=== PATIENT | female | born 1965 | race African-American/Black ===

== ENCOUNTER 2016-09-07 08:55 | Observation (INO) | payer OTHER ==
[2016-09-07] MEDS ORDERED: ASPIRIN 81 MG TABLET, CHEWABLE PO ONE (09:04)
--- NOTE | 2016-09-07 09:43 | EKG REPORT ---
SEVERITY:- ABNORMAL ECG - SINUS RHYTHM PROBABLE INFERIOR INFARCT, AGE INDETERMINATE ABNRM R PROG, CONSIDER ASMI OR LEAD PLACEMENT : Confirmed by: Hermes Ribeiro 07-Sep-2016 09:43:12
--- NOTE | 2016-09-07 10:13 | ER Document Report ---
[id number] TRAVEL OUTSIDE OF THE [place] IN LAST 30 DAYS: No - HPI Onset: Other Onset/Duration: Persistent Quality of pain: Other - heavieness Pain Level: 1 Associated symptoms: Body/muscle aches, Earache, Headache Exacerbated by: Denies Relieved by: Denies Similar symptoms previously: No Recently seen / treated by doctor: No <SUMI HAYWOOD - Last Filed: 09/07/16 18:38> <ALEX MONTGOMERY - Last Filed: 09/11/16 09:02> - General Chief Complaint: Cold Symptoms Stated Complaint: RIGHT SIDE PAIN Notes: Patient presents to the emergency department with complaints of chest heaviness for the past week that comes/goes. She also complains of pain on her right side. She reports her right arm has been hurting for one week that comes and goes and sometimes she feels numbness in her right hand. She denies chest heaviness at this time. She also reports for the past 3 days her right ear has been hurting she's had a headache and she's felt achy. She denies fever nausea vomiting diarrhea. Denies diaphoresis or nausea when the heaviness comes. Patient denies history of cardiac disease but is prediabetic, has history of hypertension and is obese. Denies family history of cardiac disease. (SUMI HAYWOOD) - Related Data Allergies/Adverse Reactions: Sulfa (Sulfonamide Antibiotics) Adverse Reaction (Mild, Verified 09/07/16 08:58) Home Medications: Current Home Medications Ergocalciferol (Vitamin D2) [Vitamin D2] 1 cap PO WE 09/07/16 [History] Estradiol [Estrace] 1 mg PO DAILY 09/07/16 [History] Fexofenadine HCl [Candy] 180 mg PO DAILY 09/07/16 [History] Fluticasone Propionate [Flonase Nasal [place] 50 Mcg/[place] 16 gm] 2 spray NASL BID 09/07/16 [History] Iron Fum & Ag/C/B12/FA/Ca/Succ [Multigen Plus Caplet] 1 tab PO DAILY 09/07/16 [ History] Losartan Potassium [Cozaar 50 mg Tablet] 50 mg PO DAILY 09/07/16 [History] Omeprazole 20 mg PO DAILY 09/07/16 [History] Past Medical History - General Information source: Patient Last Menstrual Period: hys - Social History Smoking Status: Never Smoker Cigarette use (# per day): No Chew tobacco use (# tins/day): No Frequency of alcohol use: None Drug Abuse: None Occupation: teacher at [employer] Lives with: Family Family History: Reviewed & Not Pertinent Patient has suicidal ideation: No Patient has homicidal ideation: No - Past Medical History Cardiac Medical History: Reports: Hx Hypertension Denies: Hx Coronary Artery Disease, Hx Heart Attack Pulmonary Medical History: Denies: Hx Asthma, Hx Bronchitis, Hx COPD, Hx Pneumonia Neurological Medical History: Denies: Hx Cerebrovascular Accident, Hx Seizures Endocrine Medical History: Reports: Hx Diabetes Mellitus Type 2 - Pre diabetic Renal/ Medical History: Denies: Hx Peritoneal Dialysis Musculoskeltal Medical History: Denies Hx Arthritis Past Surgical History: Reports: Hx Cholecystectomy, Hx Hysterectomy - Immunizations Immunizations up to date: Yes Hx Diphtheria, Pertussis, Tetanus Vaccination: Yes <SUMI HAYWOOD - Last Filed: 09/07/16 18:38> Review of Systems <SUMI HAYWOOD - Last Filed: 09/07/16 18:38> <ALEX MONTGOMERY - Last Filed: 09/11/16 09:02> - Review of Systems Notes: Review HPI for review of systems., All other systems negative (SUMI HAYWOOD) Physical Exam <SUMI HAYWOOD - Last Filed: 09/07/16 18:38> <ALEX MONTGOMERY - Last Filed: 09/11/16 09:02> - Vital signs Vitals: Temp Pulse Resp BP Pulse Ox 97.9 F 88 16 152/84 H 98 09/07/16 09:00 09/07/16 09:00 09/07/16 09:00 09/07/16 09:00 09/07/16 09:00 (SUMI HAYWOOD) (ALEX MONTGOMERY) - Notes Notes: PHYSICAL EXAMINATION: GENERAL: Well-appearing and in no acute distress nontoxic looking HEAD: Atraumatic, normocephalic. EYES: Pupils equal round and reactive to light, extraocular movements intact, sclera anicteric, conjunctiva are normal. ENT: TM WNL bhuim. nares patent, oropharynx clear without exudates. Moist mucous membranes. NECK: Normal range of motion, supple without lymphadenopathy LUNGS: CTAB and equal. No wheezes rales or rhonchi. HEART: Regular rate and rhythm without murmurs ABDOMEN: Soft, no tenderness. No guarding, no rebound BACK: No c/o pain EXTREMITIES: Normal range of motion, no pitting edema. No cyanosis. NEUROLOGICAL: Cranial nerves grossly intact. Normal sensory/motor exams. no weakness PSYCH: Normal mood, normal affect. SKIN: Warm, Dry, normal turgor, no rashes or lesions noted (SUMI HAYWOOD) Course - Laboratory Result Diagrams: 09/07/16 10:25 09/07/16 10:25 - Diagnostic Test Radiology reviewed: Image reviewed, Reports reviewed - IMPRESSION: NO SIGNIFICANT RADIOGRAPHIC FINDING IN THE CHEST - EKG Interpretation by Mt EKG shows normal: Sinus rhythm <SUMI HAYWOOD - Last Filed: 09/07/16 18:38> - Laboratory Result Diagrams: 09/07/16 10:25 09/07/16 10:25 <ALEX MONTGOMERY - Last Filed: 09/11/16 09:02> - Re-evaluation Re-evalutation: 09/07/16 10:13 Patient instructed on plan of care & timeframe 09/07/16 16:42 I have consulted the attending provider dr montgomery per [facility] guidelines. She agree' s with consult hospitalist for admission. Pt denies chest heaviness at this time , reports it comes/goes. 09/07/16 16:54 Patient instructed on all results agrees for admission for observation. Dr. Aguila contacted and agrees to tele obs. (SUMI HAYWOOD) - Vital Signs Vital signs: Temp Pulse Resp BP Pulse Ox 98.2 F 93 18 149/80 H 98 09/08/16 15:59 09/08/16 15:59 09/08/16 15:59 09/08/16 15:59 09/08/16 15:59 (SUMI HAYWOOD) (ALEX MONTGOMERY) - Laboratory Laboratory results interpreted by al: 09/07/16 10:15 Ur Leukocyte Esterase MODERATE H (ALEX MONTGOMERY) Discharge - Discharge Admitting Provider: Jennifer aguila Unit Admitted: Telemetry <SUMI HAYWOOD - Last Filed: 09/07/16 18:38> <ALEX MONTGOMERY - Last Filed: 09/11/16 09:02> - Discharge Clinical Impression: Chest heaviness Disposition: ADMITTED OBSERVATION
[2016-09-07 10:48] LABS: APPEARANCE,URINE SLIGHTLY-CLOUDY; BILIRUBIN,URINE NEGATIVE (NEGATIVE); GLUCOSE, URINE NEGATIVE (NEGATIVE); KETONES,URINE NEGATIVE (NEGATIVE); LEUKOCYTE ESTERASE,URINE MODERATE (NEGATIVE); NITRITE,URINE NEGATIVE (NEGATIVE); PROTEIN,URINE NEGATIVE (NEGATIVE); URINE SPECIFIC GRAVITY 1.021; UROBILINOGEN,URINE NEGATIVE mg/dL (<2.0)
[2016-09-07 11:00] LABS: ABSOLUTE BASOPHILS # (AUTO) 0.1 10^3/uL (0.0-0.2); ABSOLUTE EOSINOPHILS # (AUTO) 0.1 10^3/uL (0.0-0.6); ABSOLUTE LYMPHOCYTES (AUTO) 2.7 10^3/uL (0.5-4.7); ABSOLUTE MONOCYTES (AUTO) 0.5 10^3/uL (0.1-1.4); ABSOLUTE NEUT (AUTO) 5.1 10^3/uL (1.7-8.2); BASOPHILS % (AUTO) 0.7 % (0-2); EOSINOPHILS % (AUTO) 0.8 % (0-6); HEMATOCRIT 40.8 % (36.0-47.0); HEMOGLOBIN 13.2 g/dL (12.0-15.5); HGB HCT DIFFERENCE -1.2; LYMPHOCYTES % (AUTO) 32.4 % (13-45); MEAN CORPUSCULAR HEMOGLOBIN 27.2 pg (27.0-33.4); MEAN CORPUSCULAR HGB CONC 32.4 g/dL (32.0-36.0); MEAN CORPUSCULAR VOLUME 84 fl (80-97); MONOCYTES % (AUTO) 5.5 % (3-13); RED BLOOD COUNT 4.87 10^6/uL (3.72-5.28); RED CELL DISTRIBUTION WIDTH 13.9 % (11.5-14.0); SEGMENTED NEUTROPHILS % (AUTO) 60.6 % (42-78); WHITE BLOOD COUNT 8.4 10^3/uL (4.0-10.5)
[2016-09-07 11:16] LABS: ALANINE AMINOTRANSFERASE 22 U/L (9-52); ALBUMIN 4.2 g/dL (3.5-5.0); ALKALINE PHOSPHATASE 85 U/L (38-126); ANION GAP 10 (5-19); ASPARTATE AMINO TRANSFERASE 17 U/L (14-36); BILIRUBIN,TOTAL 0.5 mg/dL (0.2-1.3); BLOOD UREA NITROGEN 14 mg/dL (7-20); CALCIUM 9.2 mg/dL (8.4-10.2); CARBON DIOXIDE 29 mmol/L (22-30); CHLORIDE 104 mmol/L (98-107); CREATINE KINASE 118 U/L (30-135); CREATININE RESULT 0.69 mg/dL (0.52-1.25); GLUCOSE 88 mg/dL (75-110); LIPASE 109.2 U/L (23-300); SODIUM 142.8 mmol/L (137-145); TOTAL PROTEIN 7.1 g/dL (6.3-8.2)
[2016-09-07 11:38] LABS: CREATINE KINASE MB 0.45 ng/mL (<4.55)
[2016-09-07 11:39] LABS: TROPONIN I < 0.012 ng/mL
[2016-09-07] MEDS ORDERED: REGADENOSON INJ 0.4 MG/5 ML DISP.SYRIN IV ONE (14:27)
[2016-09-07] MEDS ORDERED: NORMAL SALINE 1000 ML 1,000 ML IV PRN (17:49)
[2016-09-07] MEDS ORDERED: ONDANSETRON HCL INJ/PF 4 MG/2 ML SDV IV PRN (17:49)
[2016-09-07] MEDS ORDERED: ACETAMINOPHEN 325 MG TABLET PO PRN (17:49)
--- NOTE | 2016-09-07 17:49 | PDOC H&P ---
History of Present Illness Admission Date/PCP: 09/07/16 17:35 EBONI DIOR MD Patient complains of: Chest pain History of Present Illness: DIAN SABA is a 51 year old female, with hypertension, questionable diabetes presents with chest pain of several generations on and off located in the precordium. It is pressure-like in character, with associated cold clammy sweats at times and nausea. No vomiting nor any shortness of breath. There is palpitation at times. No chills or fever nor cough nor pleurisy. Patient also experienced a different kind of pain that goes and radiates to the right upper extremity and it is sharp in nature intermittently. Patient likewise has intermittent leg pain and cramps and swelling. Past Medical History Cardiac Medical History: Reports: Hypertension Denies: Coronary Artery Disease, Myocardial Infarction Pulmonary Medical History: Reports: Other - Seasonal allergies Denies: Asthma, Bronchitis, Chronic Obstructive Pulmonary Disease (COPD), Pneumonia Neurological Medical History: Denies: Seizures Endocrine Medical History: Reports: Diabetes Mellitus Type 2 - Pre diabetic Musculoskeltal Medical History: Denies: Arthritis Hematology: Denies: Anemia Past Surgical History Past Surgical History: Reports: Cholecystectomy, Hysterectomy, Other - Bilateral oophorectomy. Social History Information Source: Patient Lives with: Family Smoking Status: Never Smoker Frequency of Alcohol Use: None Hx Recreational Drug Use: No Drugs: None Family History Family History: CVA, DM, Hypertension, Malignancy - Gastric Parental Family History Reviewed: Yes Children Family History Reviewed: Yes Sibling(s) Family History Reviewed.: Yes Medication/Allergy Allergies/Adverse Reactions: Sulfa (Sulfonamide Antibiotics) Adverse Reaction (Mild, Verified 09/07/16 08:58) Review of Systems Constitutional: ABSENT: chills, fever(s), headache(s), night sweats, weight gain , weight loss Eyes: ABSENT: visual disturbances Ears: ABSENT: hearing changes Nose, Mouth, and Throat: ABSENT: mouth pain, sore throat Cardiovascular: PRESENT: chest pain, palpitations. ABSENT: dyspnea on exertion , edema, orthropnea Respiratory: ABSENT: cough, dyspnea, hemoptysis Gastrointestinal: ABSENT: abdominal pain, bloating, coffee ground emesis, constipation, diarrhea, heartburn, hematemesis, hematochezia, melena, nausea, vomiting Genitourinary: PRESENT: other - Occasional frequency. ABSENT: dysuria, hematuria Musculoskeletal: ABSENT: joint swelling Integumentary: ABSENT: pruritus, rash, wounds Neurological: ABSENT: abnormal gait, abnormal speech, confusion, dizziness, focal weakness, syncope Psychiatric: ABSENT: anxiety, depression, homidical ideation, suicidal ideation Endocrine: ABSENT: cold intolerance, heat intolerance, polydipsia, polyuria Hematologic/Lymphatic: ABSENT: easy bleeding, easy bruising Physical Exam Vital Signs: Temp Pulse Resp BP Pulse Ox 97.9 F 88 16 152/84 H 98 09/07/16 09:00 09/07/16 09:00 09/07/16 09:00 09/07/16 09:00 09/07/16 09:00 General appearance: PRESENT: no acute distress, cooperative, other - Overweight Head exam: PRESENT: atraumatic, normocephalic Eye exam: PRESENT: conjunctiva pink, EOMI, PERRLA. ABSENT: scleral icterus Ear exam: PRESENT: normal external ear exam Mouth exam: PRESENT: moist, neck supple, tongue midline Neck exam: ABSENT: carotid bruit, JVD, lymphadenopathy, thyromegaly Respiratory exam: PRESENT: clear to auscultation bhumi. ABSENT: rales, rhonchi, wheezes Cardiovascular exam: PRESENT: RRR. ABSENT: diastolic murmur, rubs, systolic murmur Pulses: PRESENT: normal dorsalis pedis pul Vascular exam: PRESENT: normal capillary refill GI/Abdominal exam: PRESENT: normal bowel sounds, soft. ABSENT: distended, guarding, mass, organolmegaly, rebound, tenderness Rectal exam: PRESENT: deferred Extremities exam: PRESENT: full ROM. ABSENT: calf tenderness, clubbing, pedal edema Neurological exam: PRESENT: alert, awake, oriented to person, oriented to place , oriented to time, oriented to situation Psychiatric exam: PRESENT: appropriate affect, normal mood. ABSENT: homicidal ideation, suicidal ideation Skin exam: PRESENT: dry, intact, warm. ABSENT: cyanosis, rash Results Impressions: Chest X-Ray 09/07/16 10:09 IMPRESSION: NO SIGNIFICANT RADIOGRAPHIC FINDING IN THE CHEST. Assessment & Plan - Diagnosis (1) Chest heaviness Is this a current diagnosis for this admission?: Yes (2) UTI (urinary tract infection) Qualifiers: Urinary tract infection type: site unspecified Hematuria presence: without hematuria Qualified Code(s): N39.0 - Urinary tract infection, site not specified Is this a current diagnosis for this admission?: Yes (3) Essential hypertension Is this a current diagnosis for this admission?: Yes (4) Seasonal allergic rhinitis Qualifiers: Allergic rhinitis trigger: unspecified Qualified Code(s): J30.2 - Other seasonal allergic rhinitis Is this a current diagnosis for this admission?: Yes - Time Time Spent: 30 to 50 Minutes - Plan Summary Plan Summary: Admitted to observation. Serial cardiac enzymes 3. If negative patient wanting to have a stress test done. We will leave ceftriaxone for urinary tract infection and send urine sample for culture. Patient will be started on aspirin. We will check d-dimer as well. Supplemental oxygen will be given. DVT prophylaxis with Lovenox will be placed. Further testing depends on the initial evaluation as outlined above.
[2016-09-07] MEDS ORDERED: CEFTRIAXONE 1 GM/D5W RTU 1 GM/50 ML RTUPB IV SCH (18:00)
[2016-09-07] MEDS: DOCUSATE SODIUM 100 MG CAPSULE PO SCH (18:33)
[2016-09-07] MEDS ORDERED: ENOXAPARIN SODIUM INJ 40 MG/0.4 ML DISP.SYRIN SUBCUT ONE (20:00)
--- NOTE | 2016-09-07 21:36 | EKG REPORT ---
SEVERITY:- NORMAL ECG - SINUS RHYTHM : Confirmed by: Hermes Ribeiro 07-Sep-2016 21:35:46
[2016-09-08] MEDS ORDERED: LANSOPRAZOLE 30 MG TAB.RAP.DR PO SCH (06:00)
[2016-09-08] MEDS ORDERED: ENOXAPARIN SODIUM INJ 40 MG/0.4 ML DISP.SYRIN SUBCUT SCH (08:00)
[2016-09-08] MEDS ORDERED: (PENDING PHARMACY ID) (Estradiol [Estrace] 1 MG) PO SCH (10:00)
[2016-09-08] MEDS ORDERED: [UNRECOGNIZED DRUG - OTHER] PO SCH (10:00)
[2016-09-08] MEDS ORDERED: LORATADINE 10 MG TABLET PO SCH (10:00)
[2016-09-08] MEDS ORDERED: ASPIRIN 81 MG TABLET, CHEWABLE PO SCH (10:00)
[2016-09-08] MEDS ORDERED: MULTIVITAMIN TABLET PO SCH (10:00)
[2016-09-08] MEDS ORDERED: LOSARTAN POTASSIUM 50 MG TABLET PO SCH (10:00)
[2016-09-08] MEDS ORDERED: FLUTICASONE NASAL SPRAY 50 MCG/SPRY 120 SPRAY/16 GM NASL SCH (10:00)
[2016-09-08] MEDS: DOCUSATE SODIUM 100 MG CAPSULE PO SCH (11:29)
[2016-09-08 13:09] VITALS: BP 149/80
--- NOTE | 2016-09-08 15:57 | PDOC DISCHARGE SUMMARY ---
General - Admit/Disc Date/PCP Admission Date/Primary Care Provider: 09/07/16 17:49 EBONI DIOR MD Discharge Date: 09/08/16 - Discharge Diagnosis (1) Essential hypertension Is this a current diagnosis for this admission?: Yes (2) Chest heaviness Is this a current diagnosis for this admission?: Yes (3) Seasonal allergic rhinitis Is this a current diagnosis for this admission?: Yes - Additional Information Resuscitation Status: Full Code Discharge Diet: As Tolerated, Cardiac Discharge Activity: Activity As Tolerated Home Medications: Ergocalciferol (Vitamin D2) [Vitamin D2] 1 cap PO WE 09/07/16 Estradiol [Estrace] 1 mg PO DAILY 09/07/16 Fexofenadine HCl [Candy] 180 mg PO DAILY 09/07/16 Fluticasone Propionate [Flonase Nasal [place] 50 Mcg/[place] 16 gm] 2 spray NASL BID 09/07/16 Iron Fum & Ag/C/B12/FA/Ca/Succ [Multigen Plus Caplet] 1 tab PO DAILY 09/07/16 Losartan Potassium [Cozaar 50 mg Tablet] 50 mg PO DAILY 09/07/16 Omeprazole 20 mg PO DAILY 09/07/16 Aspirin [Aspirin 81 mg Chewable Tablet] 81 mg PO DAILY #30 tab.chew 09/08/16 History of Present Illness Patient complains of: Chest pain History of Present Illness: DIAN SABA is a 51 year old female, with hypertension, questionable diabetes presents with chest pain of several generations on and off located in the precordium. It is pressure-like in character, with associated cold clammy sweats at times and nausea. No vomiting nor any shortness of breath. There is palpitation at times. No chills or fever nor cough nor pleurisy. Patient also experienced a different kind of pain that goes and radiates to the right upper extremity and it is sharp in nature intermittently. Patient likewise has intermittent leg pain and cramps and swelling. Hospital Course Hospital Course: The patient was observed in a continues telemetry unit, serial cardiac enzymes were obtained which were nonsuggestive. The patient's EKG revealed no acute changes and the patient had no events on ekg monitor. Patient had no further replication of symptoms. She underwent Cardiolite stress test and findings were not suggestive of reversible ischemia. Patient was resumed on home medications. Patient is eager for discharge. Physical Exam Vital Signs: Temp Pulse Resp BP Pulse Ox 98.2 F 93 18 149/80 H 98 09/08/16 13:00 09/08/16 14:00 09/08/16 13:00 09/08/16 13:00 09/08/16 13:00 Intake & Output 09/06/16 09/07/16 09/08/16 23:59 23:59 23:59 Intake Total 200 0 Balance 200 0 Weight 121.8 kg 82.6 kg General appearance: PRESENT: no acute distress, well-developed, well-nourished Head exam: PRESENT: atraumatic, normocephalic Eye exam: PRESENT: conjunctiva pink, EOMI, PERRLA. ABSENT: scleral icterus Ear exam: PRESENT: normal external ear exam Mouth exam: PRESENT: moist, tongue midline Neck exam: ABSENT: carotid bruit, JVD, lymphadenopathy, thyromegaly Respiratory exam: PRESENT: clear to auscultation bhumi. ABSENT: rales, rhonchi, wheezes Cardiovascular exam: PRESENT: RRR. ABSENT: diastolic murmur, rubs, systolic murmur Pulses: PRESENT: normal dorsalis pedis pul Vascular exam: PRESENT: normal capillary refill GI/Abdominal exam: PRESENT: normal bowel sounds, soft. ABSENT: distended, guarding, mass, organolmegaly, rebound, tenderness Rectal exam: PRESENT: deferred Extremities exam: PRESENT: full ROM. ABSENT: calf tenderness, clubbing, pedal edema Neurological exam: PRESENT: alert, awake, oriented to person, oriented to place , oriented to time, oriented to situation, CN II-XII grossly intact. ABSENT: motor sensory deficit Psychiatric exam: PRESENT: appropriate affect, normal mood. ABSENT: homicidal ideation, suicidal ideation Skin exam: PRESENT: dry, intact, warm. ABSENT: cyanosis, rash Results Laboratory Results: Labs- Last Values WBC 8.4 10^3/uL (4.0-10.5) 09/07/16 10:25 RBC 4.87 10^6/uL (3.72-5.28) 09/07/16 10:25 Hgb 13.2 g/dL (12.0-15.5) 09/07/16 10:25 Hct 40.8 % (36.0-47.0) 09/07/16 10:25 MCV 84 fl (80-97) 09/07/16 10:25 MCH 27.2 pg (27.0-33.4) 09/07/16 10:25 MCHC 32.4 g/dL (32.0-36.0) 09/07/16 10:25 RDW 13.9 % (11.5-14.0) 09/07/16 10:25 Plt Count 228 10^3/uL (150-450) 09/07/16 10:25 Seg Neutrophils % 60.6 % (42-78) 09/07/16 10:25 Lymphocytes % 32.4 % (13-45) 09/07/16 10:25 Monocytes % 5.5 % (3-13) 09/07/16 10:25 Eosinophils % 0.8 % (0-6) 09/07/16 10:25 Basophils % 0.7 % (0-2) 09/07/16 10:25 Absolute Neutrophils 5.1 10^3/uL (1.7-8.2) 09/07/16 10:25 Absolute Lymphocytes 2.7 10^3/uL (0.5-4.7) 09/07/16 10:25 Absolute Monocytes 0.5 10^3/uL (0.1-1.4) 09/07/16 10:25 Absolute Eosinophils 0.1 10^3/uL (0.0-0.6) 09/07/16 10:25 Absolute Basophils 0.1 10^3/uL (0.0-0.2) 09/07/16 10:25 D-Dimer 0.41 ug/mL (0.00-0.50) 09/07/16 14:15 Sodium 142.8 mmol/L (137-145) 09/07/16 10:25 Potassium 4.0 mmol/L (3.6-5.0) 09/07/16 10:25 Chloride 104 mmol/L (98-107) 09/07/16 10:25 Carbon Dioxide 29 mmol/L (22-30) 09/07/16 10:25 Anion Gap 10 (5-19) 09/07/16 10:25 BUN 14 mg/dL (7-20) 09/07/16 10:25 Creatinine 0.69 mg/dL (0.52-1.25) 09/07/16 10:25 Est GFR ( Amer) > 60 (>60) 09/07/16 10:25 Est GFR (Non-Af Amer) > 60 (>60) 09/07/16 10:25 Glucose 88 mg/dL (75-110) 09/07/16 10:25 Calcium 9.2 mg/dL (8.4-10.2) 09/07/16 10:25 Total Bilirubin 0.5 mg/dL (0.2-1.3) 09/07/16 10:25 Direct Bilirubin 0.0 mg/dL (0.0-0.3) 09/07/16 10:25 AST 17 U/L (14-36) 09/07/16 10:25 ALT 22 U/L (9-52) 09/07/16 10:25 Alkaline Phosphatase 85 U/L (38-126) 09/07/16 10:25 Creatine Kinase 99 U/L (30-135) 09/08/16 01:28 CK-MB (CK-2) 0.45 ng/mL (<4.55) 09/07/16 10:25 Troponin I < 0.012 ng/mL 09/08/16 01:28 Total Protein 7.1 g/dL (6.3-8.2) 09/07/16 10:25 Albumin 4.2 g/dL (3.5-5.0) 09/07/16 10:25 Lipase 109.2 U/L (23-300) 09/07/16 10:25 Urine Color YELLOW 09/07/16 10:15 Urine Appearance SLIGHTLY-CLOUDY 09/07/16 10:15 Urine pH 6.0 (5.0-9.0) 09/07/16 10:15 Ur Specific [place] 1.021 09/07/16 10:15 Urine Protein NEGATIVE mg/dL (NEGATIVE) 09/07/16 10:15 Urine Glucose (UA) NEGATIVE mg/dL (NEGATIVE) 09/07/16 10:15 Urine Ketones NEGATIVE mg/dL (NEGATIVE) 09/07/16 10:15 Urine Blood NEGATIVE (NEGATIVE) 09/07/16 10:15 Urine Nitrite NEGATIVE (NEGATIVE) 09/07/16 10:15 Urine Bilirubin NEGATIVE (NEGATIVE) 09/07/16 10:15 Urine Urobilinogen NEGATIVE mg/dL (<2.0) 09/07/16 10:15 Ur Leukocyte Esterase MODERATE (NEGATIVE) H 09/07/16 10:15 Urine WBC (Auto) 50 /HPF 09/07/16 10:15 Urine RBC (Auto) 4 /HPF 09/07/16 10:15 Urine Bacteria (Auto) TRACE /HPF 09/07/16 10:15 Squamous Epi Cells Auto 4 /HPF 09/07/16 10:15 Urine Mucus (Auto) FEW /LPF 09/07/16 10:15 Urine Ascorbic Acid NEGATIVE (NEGATIVE) 09/07/16 10:15 Influenza A (Rapid) NEGATIVE (NEGATIVE) 09/07/16 10:35 Influenza B (Rapid) NEGATIVE (NEGATIVE) 09/07/16 10:35 09/08/16 06:30 Urine Culture - Pending Clean Catch Midstream Impressions: Chest X-Ray 09/07/16 10:09 IMPRESSION: NO SIGNIFICANT RADIOGRAPHIC FINDING IN THE CHEST. Qualifiers PATEINT BEING DISCHARGED WITH ANY OF THE FOLLOWING DIAGNOSIS?: No Plan Time Spent: Less than 30 Minutes
--- NOTE | 2016-09-10 19:05 | DRAGON STRESS TEST REPORT ---
Intravenous Lexiscan Cardiolite stress test using single photon emmision computerized tomography. Date of procedure: 09/08/2016 Ordering Provider: Dr. Tres Aguila Primary Care Physician: Dr. Aline Singh. Indication: Chest pain. Coronary risk factors: Age, non-insulin- dependent.insulin dependent diabetes mellitus type II without complications, and hypertension. Resting EKG: Sinus Rhythm. Poor R wave leads V1 to V4. There is T inversion in lead 3 Stress EKG: No changes of ischemia. The patient no chest pain or discomfort, and there were no arrhythmias seen. Reason for termination: Protocol. Conclusions: Normal EKG and hemodynamic response to IV Lexiscan. Nuclear data: At rest the patient was given 12.86 millicuries of technetium 99m sestamibi injected intravenously. As per protocol rest non gated SPECT images were obtained. Subsequently the patient was given intravenous Lexiscan at a dose of 0.4 mg in 5 mL intravenously, followed by flush with normal saline. Subsequently the stress dose of 33.7 millicuries of technetium 99m sestamibi was injected intravenously. As per protocol stress gated images were obtained. Nuclear interpretation: Review of images showed that there was significant breast attenuation artifact, and liver and bowel contamination artifact. Involving the anterior apical wall , and inferior arguelles. This is a poor quality study But in spite of this all segments of the myocardium had normal perfusion at rest, and normal perfusion post stress with IV Lexiscan. All segments of the myocardium had normal motion, contraction, and thickening by gated study. T. I D. ratio was normal at 1.15. Computer read rest, and stress left ventricular ejection fraction were 51 %, and 56 %, respectively. Visually both the stress and rest ejection fractions were normal, and greater than 55%. Conclusion: 1. There is no scintigraphic evidence of Lexiscan induced myocardial ischemia. 2. There is no scintigraphic evidence of myocardial infarction/scar. Recommendations: Aggressive risk factor modification, and treating the underlying co- morbidities. MTDD
== END 2016-09-08 16:30 | disposition home or self-care (01) ==
LOC: ER 08:55 → EH 17:35 → UNDOADMOB 17:35 → EH 17:49 → 4N 21:00
PROC: 3E033GC Introduction of Other Therapeutic Substance into Peripheral Vein, Percutaneous Approach (ICD-10-PCS; principal; 2016-09-07)
DX: R07.89 Other chest pain (principal); I10 Essential (primary) hypertension; J30.2 Other seasonal allergic rhinitis; R73.03 Prediabetes; N39.0 Urinary tract infection, site not specified
CPT/HCPCS: 93005; 99285; 96365; 36415 ×2; 87086; 82553; 82550 ×2; 83690; 85025; 80053; 81001; 84484 ×2; 85379; 87804; 93017; 71020; 78452; 93010; G0378 ×3; A9500; J2785; J1650 ×2; J3490; J0696; Q9969

== ENCOUNTER → 2017-03-20 | Outpatient (CLI) | payer BC, OTHER ==
--- NOTE | 2017-03-22 11:10 | WOMENS IMAGING REPORT ---
EXAM DESCRIPTION: BILAT SCREENING MAMMO W/CAD COMPLETED DATE/TIME: 03/21/2017 10:56 am REASON FOR STUDY: ROUTINE SCREENING; Z12.31 Z12.31 ENCNTR SCREEN MAMMOGRAM FOR MALIGNANT NEOPLASM O F LESLY COMPARISON: 2009 to 2015 TECHNIQUE: Standard craniocaudal and mediolateral oblique views of each breast recorded using PhysicianPortala l acquisition. LIMITATIONS: None. FINDINGS: No masses, calcifications or architectural distortion. No areas of suspicion. Read with the assistance of CAD. .[facility] R2 Cenova Version 1.3 .[facility] - R2 Cenova Version 1.3 .[facility] - R2 Cenova Version 2.4 .[facility] [place] - R2 Cenova Version 2.4 .[facility] - R2 [employer] Version 9.2 IMPRESSION: NORMAL MAMMOGRAM. BIRADS 1. BREAST DENSITY: b. There are scattered areas of fibroglandular density. BIRAD: 1 NEGATIVE RECOMMENDATION: ROUTINE SCREENING COMMENT: The patient has been notified of the results by letter per SA requirements. Additional no tification policies are in place for contacting patient with suspicious or incomplete findings. Quality ID #[id number]: The [employer] recommends an annual screening mammogram for women aged 40 years or over. This facility utilizes a reminder system to ensure that all patients receive reminder letters, and/or direct phone calls for appointments. This includes reminders for routine scr eening mammograms, diagnostic mammograms, or other Breast Imaging Interventions when appropriate. Th is patient will be placed in the appropriate reminder system. The [employer] ([employer]) has developed recommendations for screening MRI of the breast s in certain patient populations, to be used in conjunction with mammography. Breast MRI surveillanc e may be appropriate for women with more than 20% lifetime risk of developing breast cancer as deter mined by genetic testing, significant family history of the disease, or history of mantle radiation f or Hodgkins Disease. ACR Practice Guidelines 2008. TECHNICAL DOCUMENTATION: FINDING NUMBER: (1) ASSESSMENT: (1) JOB ID: [id number] [employer]- All Rights Reserved
== END ==
LOC: WI 15:33
PROVIDERS: ATTEND Family Medicine
DX: Z12.31 Encounter for screening mammogram for malignant neoplasm of breast (principal)
CPT/HCPCS: 77067; G0202

== ENCOUNTER 2019-08-10 11:31 | Emergency (ER) | payer BC, OTHER ==
[2019-08-10] MEDS ORDERED: ONDANSETRON 4 MG TAB.RAPDIS PO ONE (11:49)
--- NOTE | 2019-08-10 11:51 | ER Document Report ---
ED Medical Screen (RME) - General Chief Complaint: Shortness Of Breath Stated Complaint: BREATHING PROBLEMS Time Seen by Provider: 08/10/19 11:46 Primary Care Provider: EBONI DIOR MD [Primary Care Provider] - Follow up as needed TRAVEL OUTSIDE OF THE [place] IN LAST 30 DAYS: No - HPI Notes: 08/10/19 11:49 Patient is a 54-year-old female with history of hypertension who presents complaining of having left upper quadrant/epigastric abdominal pain that wraps around to her back and is worsened when she takes a deep breath that began when she woke up this morning. Patient does have associated nausea. Patient states that she does not feel short of breath at rest. She does not have any chest pain associated. No history of DVT or PE. She does have a history of cholecy stectomy and hysterectomy. No fever or cough. I have treated and performed a rapid initial assessment of this patient. A comprehensive ED assessment and evaluation of the patient, analysis of test results and completion of medical decision making process will be conducted by additional ED providers. PHYSICAL EXAMINATION: GENERAL: Well-appearing, well-nourished and in no acute distress. A&Ox4. Answers questions appropriately. Heart: RRR Lungs: CTAB Abdomen: Limited exam, there is some tenderness to the epigastrium/left upper quadrant to palpation. - Related Data Allergies/Adverse Reactions: Sulfa (Sulfonamide Antibiotics) Adverse Reaction (Mild, Verified 09/07/16 08:58) Past Medical History - Past Medical History Cardiac Medical History: Reports: Hx Hypertension Denies: Hx Coronary Artery Disease, Hx Heart Attack Pulmonary Medical History: Denies: Hx Asthma, Hx Bronchitis, Hx COPD, Hx Pneumonia Neurological Medical History: Denies: Hx Cerebrovascular Accident, Hx Seizures Endocrine Medical History: Reports: Hx Diabetes Mellitus Type 2 - Pre diabetic Renal/ Medical History: Denies: Hx Peritoneal Dialysis Musculoskeltal Medical History: Denies Hx Arthritis Past Surgical History: Reports: Hx Cholecystectomy, Hx Hysterectomy, Other - Bilateral oophorectomy. - Immunizations Immunizations up to date: Yes Hx Diphtheria, Pertussis, Tetanus Vaccination: Yes Physical Exam - Vital signs Vitals: Temp Pulse Resp BP Pulse Ox 98.1 F 101 H 20 155/55 H 100 08/10/19 11:35 08/10/19 11:35 08/10/19 11:35 08/10/19 11:35 08/10/19 11:35 Course - Vital Signs Vital signs: Temp Pulse Resp BP Pulse Ox 98.1 F 101 H 20 155/55 H 100 08/10/19 11:35 08/10/19 11:35 08/10/19 11:35 08/10/19 11:35 08/10/19 11:35 Doctor's Discharge - Discharge Referrals: EBONI DIOR MD [Primary Care Provider] - Follow up as needed
[2019-08-10 12:25] LABS: ABSOLUTE BASOPHILS # (AUTO) 0.1 10^3/uL (0.0-0.2); ABSOLUTE EOSINOPHILS # (AUTO) 0.1 10^3/uL (0.0-0.6); ABSOLUTE LYMPHOCYTES (AUTO) 2.6 10^3/uL (0.5-4.7); ABSOLUTE MONOCYTES (AUTO) 0.6 10^3/uL (0.1-1.4); ABSOLUTE NEUT (AUTO) 5.9 10^3/uL (1.7-8.2); BASOPHILS % (AUTO) 0.7 % (0-2); EOSINOPHILS % (AUTO) 0.9 % (0-6); HEMATOCRIT 39.4 % (36.0-47.0); HEMOGLOBIN 12.9 g/dL (12.0-15.5); LYMPHOCYTES % (AUTO) 27.9 % (13-45); MEAN CORPUSCULAR HEMOGLOBIN 26.9 pg (27.0-33.4); MEAN CORPUSCULAR HGB CONC 32.7 g/dL (32.0-36.0); MEAN CORPUSCULAR VOLUME 82 fl (80-97); MONOCYTES % (AUTO) 6.8 % (3-13); PLATELET COUNT 256 10^3/uL (150-450); RED BLOOD COUNT 4.79 10^6/uL (3.72-5.28); RED CELL DISTRIBUTION WIDTH 14.6 % (11.5-14.0); SEGMENTED NEUTROPHILS % (AUTO) 63.7 % (42-78); TOTAL CELLS COUNTED % (AUTO) 100 %; WHITE BLOOD COUNT 9.3 10^3/uL (4.0-10.5)
[2019-08-10 12:42] LABS: ALBUMIN 4.2 g/dL (3.5-5.0); ALKALINE PHOSPHATASE 78 U/L (38-126); ANION GAP 8 (5-19); ASPARTATE AMINO TRANSFERASE 24 U/L (14-36); BILIRUBIN,DIRECT 0.3 mg/dL (0.0-0.4); BILIRUBIN,TOTAL 0.5 mg/dL (0.2-1.3); BLOOD UREA NITROGEN 18 mg/dL (7-20); CALCIUM 9.4 mg/dL (8.4-10.2); CARBON DIOXIDE 29 mmol/L (22-30); CHLORIDE 103 mmol/L (98-107); GLUCOSE 104 mg/dL (75-110); POTASSIUM 4.2 mmol/L (3.6-5.0); TOTAL PROTEIN 7.7 g/dL (6.3-8.2)
--- NOTE | 2019-08-10 12:49 | RADIOLOGY REPORT (SQ) ---
EXAM DESCRIPTION: CHEST 2 VIEWS COMPLETED DATE/TIME: 08/10/2019 12:27 pm REASON FOR STUDY: epigastric pain COMPARISON: Chest x-ray 09/07/2016, 07/26/2007. EXAM PARAMETERS: NUMBER OF VIEWS: two views TECHNIQUE: Digital Frontal and Lateral radiographic views of the chest acquired. RADIATION DOSE: NA LIMITATIONS: none FINDINGS: LUNGS AND PLEURA: No consolidation, pneumothorax or pleural effusion. MEDIASTINUM AND HILAR STRUCTURES: No masses or contour abnormalities. HEART AND VASCULAR STRUCTURES: The heart is mildly enlarged. No evidence for failure. BONES: No acute findings. HARDWARE: None in the chest. IMPRESSION: Mild cardiomegaly. No consolidation or pleural effusion. TECHNICAL DOCUMENTATION: JOB ID: [id number] 2010 [employer]- All Rights Reserved Reading location - IP/workstation name: [email or web address]
--- NOTE | 2019-08-10 13:03 | ER Document Report ---
ED GI/ - General Chief Complaint: Abdominal Pain Stated Complaint: BREATHING PROBLEMS Time Seen by Provider: 08/10/19 11:46 Primary Care Provider: EBONI DIOR MD [Primary Care Provider] - Follow up as needed Notes: CHIEF COMPLAINT: Left upper quadrant pain this morning HPI: 54-year-old female presenting to the emergency department complaining of left upper quadrant pain this morning. Patient states the pain seems to wrap around the left upper quadrant into the left back. Hurts to move, hurts to take a deep breath in. No history of trauma. No anterior chest pain. No shortness of breath. Denies nausea vomiting diarrhea. Patient is not on hormone replacement. ROS: See HPI - all other systems were reviewed and are otherwise negative Constitutional: no fever Eyes: no drainage, no blurred vision ENT: no runny nose, no sore throat Cardiovascular: + pleuritic chest pain Resp: no SOB, no cough GI: no vomiting, no diarrhea, + abdominal pain : no dysuria Integumentary: no rash Allergy: no hives Musculoskeletal: no extremity pain or swelling Neurological: no numbness/tingling, no weakness MEDICATIONS: I agree with the patient medications as charted by the RN. ALLERGIES: I agree with the allergies as charted by the RN. PAST MEDICAL HISTORY/PAST SURGICAL HISTORY: Reviewed and agree as charted by RN. SOCIAL HISTORY: Reviewed and agree as charted by RN. FAMILY HISTORY: No significant familial comorbid conditions directly related to patient complaint EXAM: Reviewed vital signs as charted by RN. CONSTITUTIONAL: Alert and oriented and responds appropriately to questions. Well-appearing; well-nourished, mild distress secondary to pain HEAD: Normocephalic; atraumatic EYES: PERRL; Conjunctivae clear, sclerae non-icteric ENT: normal nose; no rhinorrhea; moist mucous membranes; pharynx without lesions noted, no uvula edema or deviation, no tonsillar hypertrophy, phonation normal NECK: Supple without meningismus; non-tender; no cervical lymphadenopathy, no masses CARD: RRR; no murmurs, no clicks, no rubs, no gallops; symmetric distal pulses RESP: Normal chest excursion without splinting or tachypnea; breath sounds clear and equal bilaterally; no wheezes, no rhonchi, no rales, pulse oximetry. There is no reproducible pain on palpation of the left posterior thorax ABD/GI: Normal bowel sounds; non-distended; soft, mild tenderness in the epigastric left upper quadrant region on palpation, no rebound, no guarding; no palpable organomegaly or masses. There is no visible vesicular rash in the left upper quadrant region BACK: The back appears normal and is non-tender to palpation, there is no CVA tenderness EXT: Normal ROM in all joints; non-tender to palpation; no cyanosis, no effusions, no edema SKIN: Normal color for age and race; warm; dry; good turgor NEURO: Moves all extremities equally; Motor and sensory function intact PSYCH: The patient's mood and manner are appropriate. Grooming and personal hygiene are appropriate. MDM: 54-year-old female presenting with pleuritic left upper quadrant pain with occasional radiation to the back hurts more to move, minimal tenderness on palpation. No vomiting or diarrhea or other gastric symptoms. Initial scree darci labs did not show acute emergent abnormalities, CBC, CMP and lipase were all normal. Chest x-ray did not have acute abnormalities. EKG showed some PVCs. Will add troponin given the radiation of the discomfort, will also add d- dimer. Patient with a PERC score of 2. Heart Score 3 TRAVEL OUTSIDE OF THE [place] IN LAST 30 DAYS: No - Related Data Allergies/Adverse Reactions: Sulfa (Sulfonamide Antibiotics) Adverse Reaction (Mild, Verified 09/07/16 08:58) Home Medications: Losartan, ranitidine Past Medical History - Social History Smoking Status: Never Smoker Frequency of alcohol use: None Drug Abuse: None Family History: Reviewed & Not Pertinent Patient has suicidal ideation: No Patient has homicidal ideation: No - Past Medical History Cardiac Medical History: Reports: Hx Hypertension Denies: Hx Coronary Artery Disease, Hx Heart Attack Pulmonary Medical History: Denies: Hx Asthma, Hx Bronchitis, Hx COPD, Hx Pneumonia Neurological Medical History: Denies: Hx Cerebrovascular Accident, Hx Seizures Endocrine Medical History: Reports: Hx Diabetes Mellitus Type 2 - Pre diabetic Renal/ Medical History: Denies: Hx Peritoneal Dialysis Musculoskeletal Medical History: Denies Hx Arthritis Past Surgical History: Reports: Hx Cholecystectomy, Hx Hysterectomy, Other - Bilateral oophorectomy. - Immunizations Immunizations up to date: Yes Hx Diphtheria, Pertussis, Tetanus Vaccination: Yes Physical Exam - Vital signs Vitals: Temp Pulse Resp BP Pulse Ox 98.1 F 101 H 20 155/55 H 100 08/10/19 11:35 08/10/19 11:35 08/10/19 11:35 08/10/19 11:35 08/10/19 11:35 Course - Re-evaluation Re-evalutation: 08/10/19 16:04 She states that Toradol significantly helped her pain. I did hold the patient for a second troponin to ensure that it would be negative and it was. I have lower suspicion for ACS. Heart score of 3. Her pain is pleuritic in nature. Of note on her CT imaging there was no pulmonary embolus but they did notice a small lesion in the liver which we did discuss, likely a hemangioma but she will follow-up outpatient for MRI with her PCP. Will place patient on a course of an ti-inflammatories also have her follow-up with her PCP. Return instructions were discussed - Vital Signs Vital signs: Temp Pulse Resp BP Pulse Ox 98.1 F 101 H 20 155/55 H 100 08/10/19 11:35 08/10/19 11:35 08/10/19 11:35 08/10/19 11:35 08/10/19 11:35 - Laboratory Result Diagrams: 08/10/19 12:07 08/10/19 12:07 Laboratory results interpreted by me: 08/10/19 08/10/19 12:07 12:07 MCH 26.9 L RDW 14.6 H D-Dimer 0.83 H Discharge - Discharge Clinical Impression: Pleuritic chest pain, Abnormal CT of liver Condition: Stable Disposition: HOME, SELF-CARE Instructions: Pleurisy ([facility]) Additional Instructions: Take the naproxen consistently for pain and inflammation. Follow-up closely with your primary care provider for reevaluation of symptoms. Your CT imaging of the chest did not show evidence of a blood clot today. Your cardiac labs did not show acute findings. Of note there was a small area noted in the liver on the CT which will need further outpatient follow-up with your primary care provider as discussed. If you have worsening symptoms please return for ree valuation. If you are taking hydrocodone for severe pain do not drive on this medication Prescriptions: Naproxen 500 mg PO BID PRN #14 tablet PRN Reason: Hydrocodone/Acetaminophen [Corder 5-325 Tablet] 1 each PO Q4 PRN #10 tablet PRN Reason: Referrals: EBONI DIOR MD [Primary Care Provider] - Follow up as needed
[2019-08-10] MEDS ORDERED: KETOROLAC TROMETHAMINE INJ/PF 30 MG/1 ML SDV IV ONE (13:05)
--- NOTE | 2019-08-10 14:45 | RADIOLOGY REPORT (SQ) ---
EXAM DESCRIPTION: CTA CHEST COMPLETED DATE/TIME: 08/10/2019 2:22 pm REASON FOR STUDY: eval for PE . Chest pain. COMPARISON: Chest x-ray 08/10/2019 TECHNIQUE: CT scan of the chest performed using helical scanning technique with dynamic intravenous contrast injection. Images reviewed with lung, soft tissue and bone windows. Reconstructed coronal and sagittal MPR images reviewed. Additional 3 dimensional post-processing performed to develop Maximal Intensity Projection images (FL P). All images stored on PACS. All CT scanners at this facility use dose modulation, iterative reconstruction, and/or weight based d osing when appropriate to reduce radiation dose to as low as reasonably achievable (ALARA). [facility]: Dose Right [facility]: CareDose [facility]: Dose Right [facility]: Teradose 4D [facility]: AdRocket CONTRAST TYPE AND DOSE: 75 cc Omnipaque 350- low osmolar. Contrast bolus adequate for pulmonary arteries and aorta. RENAL FUNCTION: Creatinine 0.67 RADIATION DOSE: CT Rad equipment meets quality standard of care and radiation dose reduction techniq ues were employed. CTDIvol: 6.6 - 40.1 mGy. DLP: 1506 mGy-cm. . LIMITATIONS: None. FINDINGS: LUNGS AND PLEURA: No consolidation, pleural effusion or pneumothorax. AORTA AND GREAT VESSELS: No thoracic aortic aneurysm or evidence for acute dissection. HEART: No pericardial effusion. The heart is mildly enlarged. PULMONARY ARTERIES: No emboli visualized in the main pulmonary arteries or the segmental branches. HILAR AND MEDIASTINAL STRUCTURES: No identified masses or abnormal nodes. HARDWARE: None in the chest. UPPER ABDOMEN: There is a 4.1 x 3.9 cm hypodense lesion with peripheral nodular enhancement at the ri ght hepatic lobe. Status post cholecystectomy. THYROID AND OTHER SOFT TISSUES: No masses. No adenopathy. BONES: No acute or significant finding. IMPRESSION: 1. No pulmonary emboli. No consolidation or pleural effusion. Mild cardiomegaly. 2. 4.1 x 3.9 cm hypodense lesion with peripheral nodular enhancement at the right hepatic lobe, may r epresent a hemangioma. Follow-up with nonemergent contrast enhanced MRI recommended for confirmation and exclusion of a different etiology. COMMENT: Quality ID # [id number]: Final reports with documentation of one or more dose reduction techniques (e.g., Automated exposure control, adjustment of the mA and/or kV according to patient size, use of iterative reconstruction technique) TECHNICAL DOCUMENTATION: JOB ID: [id number] [place]-[id number] 2010 [employer]- All Rights Reserved Reading location - IP/workstation name: [email or web address]
[2019-08-10 16:06] VITALS: BP 148/84
--- NOTE | 2019-08-10 19:21 | EKG REPORT ---
SEVERITY:- ABNORMAL ECG - SINUS RHYTHM MULTIPLE VENTRICULAR PREMATURE COMPLEXES BORDERLINE R WAVE PROGRESSION, ANTERIOR LEADS : Confirmed by: Marily Alejandre MD 10-Aug-2019 19:21:18
== END 2019-08-10 16:32 | disposition home or self-care (01) ==
LOC: ER 11:31
DX: R10.12 Left upper quadrant pain (principal); R07.81 Pleurodynia; I10 Essential (primary) hypertension; Z88.2 Allergy status to sulfonamides; Z90.49 Acquired absence of other specified parts of digestive tract; Z90.710 Acquired absence of both cervix and uterus
CPT/HCPCS: 93005; 99284; 96374; 36415; 83690; 85025; 80053; 84484; 85379; 71046; 71275; 93010; S0119; J1885